=== PATIENT | female | born 1965 | race Caucasian/White ===

== ENCOUNTER 2019-02-23 09:57 | Day surgery (SDC) | payer OTHER ==
[2019-02-22 12:32] VITALS: BMI 23.9
--- NOTE | 2019-02-23 09:28 | HP ---
History & Physical Update - History History: No Change - Physical Physical: No Change - Assessment Assessment: No Change - Plan Plan: No Change (Ultrasound and Parathyroid nuclear scan reviewed with radiologist, activity noted at the right inferior pole of the thyroid suggestive of abnormal parathyroid gland. Procedure was explained to the patient , with a small possibility of an additional hyperactive gland that may be missed , or in an ectopic location.)
[2019-02-23] MEDS ORDERED: ONDANSETRON 4 MG/2 ML VIAL IVPUSH PRN ×2 (11:25→13:53)
[2019-02-23] MEDS ORDERED: LACTATED RINGERS SOLUTION 1,000 ML IV SCH (11:30)
[2019-02-23] MEDS ORDERED: LIDOCAINE 1%-EPI 1:100,000 30 ML MDV IJ ONE (11:47)
[2019-02-23] MEDS ORDERED: fentaNYL CITRATE 250 MCG/5 ML VIAL ONE (11:53)
[2019-02-23] MEDS ORDERED: MIDAZOLAM HCL 2 MG/2 ML SINGLE DOSE VIAL ONE (11:53)
[2019-02-23] MEDS ORDERED: PROPOFOL 20 ML ONE (11:53)
[2019-02-23] MEDS ORDERED: ROCURONIUM BROMIDE 50 MG/5 ML VIAL ONE (11:53)
[2019-02-23] MEDS ORDERED: LIDOCAINE HCL/PF 2% SDV 5ML VIAL ONE (11:53)
[2019-02-23] MEDS ORDERED: ceFAZolin SODIUM 1 GM VIAL ONE (12:09)
[2019-02-23] MEDS ORDERED: ceFAZolin SODIUM 1 GM VIAL IVPB ONE (12:23)
[2019-02-23] MEDS ORDERED: DEXAMETHASONE SOD PHOSPHATE 4 MG/1 ML VIAL ONE (12:39)
[2019-02-23] MEDS ORDERED: GLYCOPYRROLATE 0.2 MG/1 ML VIAL ONE (13:07)
[2019-02-23] MEDS ORDERED: NEOSTIGMINE METHYLSULFATE 0.5 MG/ML - 10 ML MDV ONE (13:07)
--- NOTE | 2019-02-23 13:31 | OP ---
Operative Note - Note: Operative Date: 02/23/19 Pre-Operative Diagnosis: Primary hyperparathyroidism. Operation: Exploration of neck parathyroidectomy, with frozen section. Findings: Abnormal right inferior parathyroid gland, measuring about 2 cms in length. Frozen section : Adenoma of right inferior parathyroid gland. Post-Operative Diagnosis: Same as Pre-op (Primaru hyperparathyroidism , adenoma of right inferior parathyroid gland.) Surgeon: London Valle Community Planning Technician: Deuce Mon Anesthesiologist/BELLMAN CAPTAIN: Rosalia Jo Anesthesia: General Specimens Removed: Right inferior parathyroid gland. Estimated Blood Loss (mls): 5 Operative Report Dictated: Yes
--- NOTE | 2019-02-23 14:56 | OP ---
DATE OF OPERATION: 02/23/2019 PREOPERATIVE DIAGNOSIS: Primary hyperparathyroidism. POSTOPERATIVE DIAGNOSIS: Parathyroid adenoma in the right inferior parathyroid gland. OPERATIVE PROCEDURE: Exploration of the neck and parathyroidectomy with frozen section. SURGEON: Yoan Valle MD SERVICE ASSOCIATE: Deuce Mon MD ANESTHESIA: General anesthesia. OPERATIVE DESCRIPTION: This 53-year-old woman was brought in electively for parathyroidectomy. She was found to have hyperparathyroidism with hypercalcemia, and localizing study revealed activity in the inferior pole of the right lobe of the thyroid gland. Patient was brought in for parathyroidectomy. Risks, benefits, and complications had been discussed with the patient. General anesthesia was administered. Afterwards, the neck was painted and draped and kept in extension. Time-out was called. A horizontal skin incision was made 1 fingerbreadth above the clavicle through the right sternocleidomastoid muscle all the way down to superior on the midline. It was deepened through the skin, subcutaneous tissue, and the platysma muscle. The superior and inferior skin flaps were then placed between the platysma and the deep cervical fascia, superiorly up to the hyoid bone, inferiorly anterior to and below the clavicle on either side. The sternocleidomastoid muscle was freed from the flap. The strap muscles were then divided in the midline from the hyoid bone down to the suprasternal notch. Once this was done, the right-sided strap muscles were retracted laterally, and the right lobe of the thyroid gland was mobilized medially and anteriorly. On exposing the inferior pole of the right lobe of the thyroid gland, a large parathyroid gland was identified. This was about 2 cm in length. This was carefully dissected off separately from its surrounding structures. The feeding vessel was then divided between clips. The parathyroid gland measured about 2 cm in longitudinal length and about 0.5 cm in horizontal width. Specimen was sent to Pathology where frozen section diagnosis was consistent with an adenoma with peripheral rim of normal parathyroid gland. The left inferior parathyroid gland was then visualized and was of normal caliber. The procedure was then completed. Hemostasis was satisfactory. Strap muscles were approximated with interrupted 3-0 Vicryl sutures. The platysma was approximated with buried interrupted 3-0 Vicryl sutures, and skin approximated with continuous 4-0 Monocryl sutures in a running subcuticular fashion. Sponge count and instrument count were correct. Estimated blood loss was less than 5 mL. Dermabond was applied over the skin edges. Patient was extubated and sent to the recovery room in satisfactory and stable condition. Liliam ROBERTS/[id number]
[2019-02-23] MEDS: LACTATED RINGERS SOLUTION 1,000 ML IV SCH (17:09)
[2019-02-23] MEDS ORDERED: CALCIUM CARBONATE 650 MG TABLET PO SCH (22:00)
[2019-02-23] MEDS: CALCIUM CARBONATE 650 MG TABLET PO SCH (22:33)
[2019-02-23] MEDS: IBUPROFEN 400 MG TABLET (FP) PO PRN (23:13)
[2019-02-24] MEDS: LACTATED RINGERS SOLUTION 1,000 ML IV SCH (01:00)
[2019-02-24] MEDS ORDERED: LEVOTHYROXINE NA 125 MCG TABLET (FP) PO SCH (07:00)
[2019-02-24] MEDS ORDERED: PT OWN MED DRAWER 7, Y5N ONE (10:09)
[2019-02-24] MEDS: CALCIUM CARBONATE 650 MG TABLET PO SCH (10:21)
[2019-02-24 10:38] VITALS: PULSE 80; TEMP 98.2
[2019-02-24] MEDS: IBUPROFEN 400 MG TABLET (FP) PO PRN (10:54)
--- NOTE | 2019-02-24 11:52 | CONSULT ---
Consult Consult Specialty:: endocrine Referred by:: dr.roa marshall Reason for Consultation:: post op parathyroidectomy - History of Present Illness Chief Complaint: hi calcium History of Present Illness: 53 y female postmenopausal history of hyperparathyroidism,hypercalcemia,sp parathyroid surgery,post op,feels well no complaint - Past Medical History ...LMP: 02/15/19 - Alcohol/Substance Use Hx Alcohol Use: No - Smoking History Smoking history: Never smoked Home Medications - Allergies Allergies/Adverse Reactions: Allergies Allergy/AdvReac Type Severity Reaction Status Date / Time No Known Allergies Allergy Verified 02/22/19 12:25 - Home Medications Home Medications: Ambulatory Orders Levothyroxine [Synthroid -] 125 mcg PO DAILY 02/22/19 Calcium 250Mg/Vit-D 125 Units [Oscal 250 mg+D -] 2 combo PO BID #14 tablet 02/23 Ibuprofen [Motrin -] 400 mg PO TID #21 tablet 02/23/19 Review of Systems - Review of Systems Constitutional: reports: No Symptoms Eyes: reports: No Symptoms HENT: reports: No Symptoms Neck: reports: No Symptoms Cardiovascular: reports: No Symptoms Respiratory: reports: No Symptoms Gastrointestinal: reports: No Symptoms Genitourinary: reports: No Symptoms Musculoskeletal: reports: No Symptoms Physical Exam Vital Signs: Vital Signs Temperature 98.2 F 02/24/19 10:38 Pulse Rate 80 02/24/19 10:38 Respiratory Rate 20 02/24/19 10:38 Blood Pressure 101/59 L 02/24/19 10:38 O2 Sat by Pulse Oximetry (%) 99 02/23/19 17:06 Constitutional: Yes: Calm Eyes: Yes: EOM Intact HENT: Yes: Normocephalic Neck: Yes: Trachea Midline, Other (mild erythema localize to suture sight no drainage) Cardiovascular: Yes: WNL Respiratory: Yes: WNL Gastrointestinal: Yes: WNL Renal/: Yes: WNL Musculoskeletal: Yes: WNL Extremities: Yes: WNL Edema: No Wound/Incision: Yes: Clean/Dry Problem List - Problems (1) Hyperparathyroidism Code(s): E21.3 - HYPERPARATHYROIDISM, UNSPECIFIED Assessment/Plan hyperparathyroidism sp parathyroidectomy Abnormal Lab Results 02/23/19 15:30 Calcium 10.2 H Laboratory Tests 02/24/19 05:40 Calcium 8.6 plan: oscal D 500mg bid follow up outpatient for calcium and bmp
[2019-02-24 14:44] VITALS: BP 92/55
--- NOTE | 2019-02-26 11:14 | PATH ---
Surgical Pathology Report Patient Name: ANDRZEJ CASEY [facility]. Rec. #: [id number] /Age/Gender: 1965 (Age: 53) / F Account: [id number] Location: AMBULATORY SURG Taken: 02/23/2019 Received: 02/23/2019 Reported: 02/26/2019 Physicians: Yoan Valle M.D. Specimen(s) Received RIGHT PARATHYROID GLAND Clinical History Hyperparathyroidism Intraoperative Consult Diagnosis Right inferior parathyroid gland, frozen section: Parathyroid adenoma, less than 1 g, 1.4 cm. William Medel M.D., 02/23/2019 Final Diagnosis RIGHT INFERIOR PARATHYROID GLAND, EXCISION: HYPERCELLULAR PARATHYROID GLAND WITH RIM OF NORMOCELLULAR PARATHYROID TISSUE CONSISTENT WITH PARATHYROID ADENOMA, LESS THAN 1 GRAM, 1.4 CM IN GREATEST DIMENSION. Electronically Signed Juan Carlos Roberts M.D. Gross Description Received fresh labeled "right inferior parathyroid gland," is a less than 1 g, 1.4 x 0.8 x 0.5 cm aguilar-brown portion of soft tissue. The specimen is bisected. A touch prep is performed and one half of the specimen is submitted for frozen section. The specimen is entirely submitted in 2 cassettes as follows: 1-frozen section residue; 2-remaining half of specimen. /02/23/2019 [facility]02/23/2019
== END 2019-02-24 15:11 | disposition home or self-care (01) ==
LOC: JASU-SURG 09:57 → JASUSAT 09:57 → J8W 16:34 → JASUSAT 02-24 15:11
PROVIDERS: ATTEND Specialist
PROC: 0GTR0ZZ Resection of Parathyroid Gland, Open Approach (ICD-10-PCS; principal; 2019-02-23 11:30)
DX: D35.1 Benign neoplasm of parathyroid gland (principal)
CPT/HCPCS: 36415; 82310; 82330; 84703; 88305-TC; 88331-TC; 94760